=== PATIENT | male | born 1995 | race Caucasian/White ===

== ENCOUNTER 2021-01-12 00:58 | Emergency (ER) | payer OTHER ==
[~2021-01-12] VITALS: Ht 180.3 cm; Wt 91.0 kg
[~2021-01-12 00:58] MED LIST: ALBUTEROL; HYDR-523
[2021-01-12 01:09] VITALS: BP 135/92
== END 2021-01-12 05:18 | disposition left against medical advice (07) ==
LOC: ER 00:58
DX: R07.89 Other chest pain (principal); Z53.21 Procedure and treatment not carried out due to patient leaving prior to being seen by health care provider
CPT/HCPCS: 99281

== ENCOUNTER 2021-07-22 15:18 | Emergency (ER) | payer OTHER ==
[~2021-07-22] VITALS: Ht 180.3 cm; Wt 96.0 kg
[2021-07-22 15:24] VITALS: BP 164/115
== END 2021-07-22 21:52 | disposition left against medical advice (07) ==
LOC: ER 15:18
DX: Z53.21 Procedure and treatment not carried out due to patient leaving prior to being seen by health care provider (principal); I49.9 Cardiac arrhythmia, unspecified
CPT/HCPCS: 93005

== ENCOUNTER 2022-02-28 10:51 | Emergency (ER) | payer MEDICAID, OTHER ==
[~2022-02-28] VITALS: Ht 177.8 cm; Wt 95.0 kg
[2022-02-28] MEDS ORDERED: KETOROLAC 30MG/ML VIAL IV STA (11:12)
[2022-02-28] MEDS ORDERED: ONDANSETRON HCL 4MG/2ML INJ IV STA (11:12)
[2022-02-28] MEDS ORDERED: SODIUM CHLORIDE 0.9% 1,000 ML IV ONE (11:15)
[2022-02-28 11:30] LABS: BASOPHILS % 0.6 % (0.0-2.0); EOSINOPHILS % 0.4 % (0.0-5.0); HEMATOCRIT. 47.5 % (42.0-52.0); HEMOGLOBIN. 15.8 g/dL (14.0-18.0); LYMPHOCYTES % 12.1 % (20.0-50.0); MEAN CORPUSCULAR HEMOGLOBIN 35.3 pg (28.0-32.0); MEAN CORPUSCULAR VOLUME 105.6 fL (80.0-94.0); MEAN PLATELET VOLUME 7.4 fl (7.4-10.4); MONOCYTES % 5.1 % (2.0-8.0); NEUTROPHILS % 81.8 % (40.0-76.0); PLATELET 209 x1000/uL (130-400); RED BLOOD CELL COUNT 4.49 mill/uL (4.7-6.1); RED CELL DISTRIBUTION WIDTH 15.9 % (11.6-14.6)
[2022-02-28 11:37] LABS: CHLORIDE 105 mEq/L (98-107)
[2022-02-28 11:44] LABS: ETHANOL BLOOD 105 mg/dL
[2022-02-28] MEDS ORDERED: CHLORDIAZEPOXIDE 25MG CAPSULE PO ONE (13:00)
[2022-02-28 13:15] VITALS: BP 137/96
[2022-02-28] MEDS ORDERED: ONDANSETRON 4MG ODT PO ONE (13:45)
== END 2022-02-28 13:58 | disposition home or self-care (01) ==
LOC: ER 10:51
DX: R10.9 Unspecified abdominal pain (principal); T51.91XA Toxic effect of unspecified alcohol, accidental (unintentional), initial encounter; Y92.9 Unspecified place or not applicable; K76.9 Liver disease, unspecified; F10.129 Alcohol abuse with intoxication, unspecified; Y90.5 Blood alcohol level of 100-119 mg/100 ml
CPT/HCPCS: 36415; 74176; 80053; 80320; 83690; 85025; 93005; 96374; 96375; 99285; J1885; J2405; J7030; Q0162; G0480

== ENCOUNTER 2023-11-30 17:06 | Inpatient (IN) | payer MEDICAID, OTHER ==
[~2023-11-30] VITALS: Ht 177.8 cm; Wt 87.2 kg
[2023-11-30] MEDS: MORPHINE SULFATE 4 MG/ML INJ (FOR IV/IM USE) IV STA (17:46)
[2023-11-30] MEDS: ONDANSETRON HCL 4MG/2ML INJ IV STA (17:47)
[2023-11-30 18:26] LABS: BASOPHILS % 0.5 % (0.0-2.0); EOSINOPHILS % 3.9 % (0.0-5.0); HEMATOCRIT. 31.3 % (42.0-52.0); HEMOGLOBIN. 10.3 g/dL (14.0-18.0); LYMPHOCYTES % 11.8 % (20.0-50.0); MEAN CORPUSCULAR HEMOGLOBIN 33.1 pg (28.0-32.0); MEAN CORPUSCULAR HGB CONC 32.8 g/dL (31.0-37.0); MEAN CORPUSCULAR VOLUME 100.8 fL (80.0-94.0); MEAN PLATELET VOLUME 7.8 fl (7.4-10.4); MONOCYTES % 2.7 % (2.0-8.0); NEUTROPHILS % 81.1 % (40.0-76.0); PLATELET 98 x1000/uL (130-400); RED CELL DISTRIBUTION WIDTH 26.8 % (11.6-14.6); WHITE BLOOD COUNT 12.8 x1000/uL (4.5-11.0)
[2023-11-30 18:28] LABS: ADD RBC MORPHOLOGY YES; DIFFERENTIAL COMMENT 1
[2023-11-30 18:34] LABS: CHLORIDE 104 mEq/L (98-107); INR 1.4; POTASSIUM 3.7 mEq/L (3.5-5.1); PROTHROMBIN TIME 15.3 sec (9.6-11.0); SODIUM 141 mEq/L (136-145)
[2023-11-30 18:35] LABS: CALCIUM 7.9 mg/dL (8.7-10.4); CARBON DIOXIDE 28 mEq/L (21-32)
[2023-11-30 18:40] LABS: CREATININE 0.5 mg/dL (0.6-1.3); GLUCOSE 99 mg/dL (70-105)
[2023-11-30 18:42] LABS: ALANINE AMINOTRANSFERASE 56 IU/L (10-49); AMMONIA 17 uMol/L (<32); ASPARTATE AMINOTRANSFERASE 225 IU/L (<34); TROPONIN I HIGH SENSITIVITY < 4 ng/L (3.0-53); UREA NITROGEN BLOOD < 5 mg/dL (9-23)
[2023-11-30 18:43] LABS: BILIRUBIN TOTAL 14.2 mg/dL (0.1-1.0); PROTEIN TOTAL 6.4 g/dL (6.0-8.3)
[2023-11-30 18:44] LABS: ANISOCYTOSIS 2+; PLATELET ESTIMATE DECREASED
[2023-11-30 18:50] LABS: ETHANOL BLOOD 316 mg/dL (<10)
[2023-11-30] MEDS ORDERED: MORPHINE SULFATE 4 MG/ML INJ (FOR IV/IM USE) IV ONE (19:00)
[2023-11-30 21:09] LABS: TROPONIN I HIGH SENSITIVITY < 4 ng/L (3.0-53)
[2023-11-30] MEDS ORDERED: CLONIDINE 0.1MG TABLET PO PRN (21:15)
[2023-11-30] MEDS ORDERED: DOCUSATE SODIUM 100MG CAPSULE PO PRN (21:15)
[2023-11-30] MEDS ORDERED: IPRATROPIUM/ALBUTEROL 0.5-3(2.5)MG/3ML NEB HHN PRN (21:15)
[2023-11-30] MEDS ORDERED: NALOXONE HCL 0.4MG/ML VIAL IV PRN (22:00)
[2023-11-30 22:01] LABS: IRON 102 ug/dL (65-175)
[2023-11-30 22:03] LABS: AMMONIA < 17 uMol/L (<32)
[2023-11-30 22:04] LABS: PHOSPHORUS 3.7 mg/dL (2.5-4.9); PREALBUMIN < 5.0 mg/dl (10.0-40.0); TOTAL IRON BINDING CAPACITY 199 ug/dl (250-425); TROPONIN I HIGH SENSITIVITY < 4 ng/L (3.0-53)
[2023-11-30 22:05] LABS: INR 1.4; PARTIAL THROMBOPLASTIN TIME 36.7 sec (23.4-31.0); PROTHROMBIN TIME 15.4 sec (9.6-11.0)
[2023-11-30 22:09] LABS: FERRITIN 180 ng/mL (22-322); FOLIC ACID (FOLATE) SERUM 7.21 ng/mL (>5.38)
[2023-11-30 22:11] LABS: VITAMIN B12 SERUM 992 pg/mL (211-911)
[2023-11-30] MEDS ORDERED: LACTULOSE 20G/30ML UDC PO PRN (22:15)
[2023-11-30 22:21] LABS: HEPATITIS B SURFACE ANTIGEN NEGATIVE (Negative)
[2023-11-30 22:36] LABS: CLARITY URINE CLEAR (CLEAR); COLOR URINE DARK YELLOW (YELLOW); GLUCOSE URINE NEGATIVE (NEGATIVE); KETONES URINE NEGATIVE (NEGATIVE); LEUKOCYTE ESTERASE URINE TRACE (NEGATIVE); NITRITE URINE NEGATIVE (NEGATIVE); OCCULT BLOOD URINE NEGATIVE (NEGATIVE); PH URINE 7.5 (4.5-8.0); PROTEIN URINE TRACE (NEGATIVE); SPECIFIC GRAVITY URINE 1.015 (1.005-1.030)
[2023-11-30] MEDS: MORPHINE SULFATE 4 MG/ML INJ (FOR IV/IM USE) IV NR (22:38)
[2023-11-30 22:42] LABS: HEPATITIS A AB IGM NEGATIVE (Negative)
[2023-11-30 22:43] LABS: HEPATITIS B CORE AB IGM NEGATIVE (Negative); HEPATITIS C AB NON REACTIVE (Neg) (Negative)
[2023-11-30 22:46] LABS: *AMPHETAMINES SCREEN URINE NEGATIVE (NEGATIVE); *BARBITURATES SCREEN URINE PRESUMPTIVE POSITIVE (NEGATIVE); *BENZODIAZEPINES SCREEN URINE NEGATIVE (NEGATIVE); *COCAINE SCREEN URINE NEGATIVE (NEGATIVE); CANNABINOID URINE SCREEN NEGATIVE (NEGATIVE); ECSTASY MDMA SCREEN URINE NEGATIVE (NEGATIVE); METHADONE URINE SCREEN NEGATIVE (NEGATIVE); OPIATES URINE SCREEN PRESUMPTIVE POSITIVE (NEGATIVE); PHENCYCLIDINE URINE SCREEN NEGATIVE (NEGATIVE)
[2023-11-30 22:54] LABS: BACTERIA URINE 1+; RBC URINE NONE SEEN /hpf (0-2); SQUAMOUS EPITHELIAL CELL URINE FEW /lpf (RARE/1+); WBC URINE 0-2 /hpf (0-2)
[2023-11-30 23:27] VITALS: BP 118/84; PULSE 85; RESP 21; TEMP 98.6
[2023-11-30] MEDS: MVI, ADULT NO.1 10 ML, FOLIC ACID 1 MG, THIAMINE HCL 100 MG in SODIUM CHLORIDE 0.9% 1,0... IV ONE (23:42)
[2023-12-01] VITALS: BP 115/81; PULSE 88; RESP 20; TEMP 98.3
[2023-12-01 04:00] VITALS: BP 116/79; PULSE 90; RESP 16; TEMP 97.6
[2023-12-01] MEDS: ONDANSETRON HCL 4MG/2ML INJ IV PRN (06:43)
[2023-12-01 07:18] LABS: HEMOGLOBIN 10.2 g/dL (14.0-18.0); MEAN CORPUSCULAR HEMOGLOBIN 34.5 pg (28.0-32.0); MEAN CORPUSCULAR HGB CONC 33.9 g/dL (31.0-37.0); MEAN CORPUSCULAR VOLUME 101.7 fL (80.0-94.0); PLATELET 76 x1000/uL (130-400); RED BLOOD CELL COUNT 2.95 mill/uL (4.7-6.1); RED CELL DISTRIBUTION WIDTH 26.3 % (11.6-14.6); WHITE BLOOD COUNT 10.6 x1000/uL (4.5-11.0)
[2023-12-01 07:23] LABS: CHLORIDE 103 mEq/L (98-107); POTASSIUM 3.4 mEq/L (3.5-5.1); SODIUM 139 mEq/L (136-145)
[2023-12-01 07:24] LABS: CALCIUM 7.6 mg/dL (8.7-10.4); CARBON DIOXIDE 26 mEq/L (21-32)
[2023-12-01 07:29] LABS: ALANINE AMINOTRANSFERASE 49 IU/L (10-49); CREATININE 0.4 mg/dL (0.6-1.3); GLUCOSE 74 mg/dL (70-105)
[2023-12-01 07:30] LABS: ALBUMIN 2.7 g/dL (3.2-4.8); ASPARTATE AMINOTRANSFERASE 192 IU/L (<34)
[2023-12-01 07:31] LABS: BILIRUBIN TOTAL 12.8 mg/dL (0.1-1.0); PROTEIN TOTAL 5.8 g/dL (6.0-8.3)
[2023-12-01 07:35] LABS: TROPONIN I HIGH SENSITIVITY < 4 ng/L (3.0-53)
[2023-12-01 07:36] LABS: UREA NITROGEN BLOOD < 5 mg/dL (9-23)
[2023-12-01 08:00] VITALS: BP 128/97; PULSE 105; RESP 17; TEMP 98.3
[2023-12-01] MEDS ORDERED: LORAZEPAM 2MG/ML INJ IV PRN (08:30)
[2023-12-01] MEDS: LORAZEPAM 2MG/ML INJ IV NR (08:55)
[2023-12-01] MEDS: SODIUM CHLORIDE 0.45% 1,000 ML IV SCH (09:35)
[2023-12-01 12:00] VITALS: PULSE 91; RESP 20; TEMP 98
[2023-12-01] MEDS: POTASSIUM CHLORIDE 20MEQ/PACKET PO SCH (12:38)
[2023-12-01] MEDS: CHLORDIAZEPOXIDE 25MG CAPSULE PO NR (12:39)
[2023-12-01] MEDS: PROPRANOLOL HCL 10MG TABLET PO SCH (12:39)
[2023-12-01] MEDS: METOCLOPRAMIDE HCL 10MG/2ML VIAL IV SCH (12:41)
[2023-12-01] MEDS ORDERED: CHLORDIAZEPOXIDE 25MG CAPSULE PO SCH (14:00)
[2023-12-01 16:00] VITALS: BP 118/85; PULSE 93; RESP 21; TEMP 98.2
[2023-12-01] MEDS ORDERED: MAGNESIUM 2 G PREMIX 50 ML IV NR (16:00)
[2023-12-01] MEDS: CARVEDILOL 3.125 MG TABLET PO SCH (17:36)
[2023-12-01] MEDS: PANTOPRAZOLE SODIUM 40 MG/VIAL IV SCH (17:36)
[2023-12-01] MEDS: MULTIVITAMINS,THER W-MINERALS TABLET PO SCH (17:37)
[2023-12-01] MEDS: THIAMINE HCL 100 MG in SODIUM CHLORIDE 0.9% 49 ML IV SCH (17:37)
[2023-12-01] MEDS: CHLORDIAZEPOXIDE 25MG CAPSULE PO SCH (17:37)
[2023-12-01] MEDS: RIFAXIMIN 550 MG TABLET PO SCH (17:47)
[2023-12-01 20:00] VITALS: BP 115/74; PULSE 94; RESP 26; TEMP 98.3
[2023-12-01] MEDS: MAGNESIUM 2 G PREMIX 50 ML IV NR (21:00)
[2023-12-01] MEDS ORDERED: FAMOTIDINE 20MG/2ML VIAL IV SCH (21:00)
[2023-12-01] MEDS: MORPHINE SULFATE 2 MG/ML INJ (NOT FOR IM USE) IV PRN (21:11)
[2023-12-02] VITALS (7 sets, daily range): BP systolic 102–109; BP diastolic 66–85; PULSE 86–101; RESP 18–31; TEMP 97.3–98.7
[2023-12-02] MEDS: ONDANSETRON INJ 8 MG in DEXTROSE 5% WATER 46 ML IV PRN (04:06)
[2023-12-02 07:09] LABS: BASOPHILS % 0.9 % (0.0-2.0); EOSINOPHILS % 4.4 % (0.0-5.0); HEMATOCRIT. 29.1 % (42.0-52.0); HEMOGLOBIN. 9.4 g/dL (14.0-18.0); LYMPHOCYTES % 8.9 % (20.0-50.0); MEAN CORPUSCULAR HEMOGLOBIN 33.4 pg (28.0-32.0); MEAN CORPUSCULAR HGB CONC 32.4 g/dL (31.0-37.0); MEAN CORPUSCULAR VOLUME 103.1 fL (80.0-94.0); MEAN PLATELET VOLUME 7.9 fl (7.4-10.4); MONOCYTES % 3.2 % (2.0-8.0); NEUTROPHILS % 82.6 % (40.0-76.0); PLATELET 56 x1000/uL (130-400); RED BLOOD CELL COUNT 2.82 mill/uL (4.7-6.1); RED CELL DISTRIBUTION WIDTH 24.9 % (11.6-14.6); WHITE BLOOD COUNT 11.2 x1000/uL (4.5-11.0)
[2023-12-02 07:19] LABS: CARBON DIOXIDE 24 mEq/L (21-32); CHLORIDE 102 mEq/L (98-107); POTASSIUM 3.4 mEq/L (3.5-5.1); SODIUM 135 mEq/L (136-145)
[2023-12-02 07:20] LABS: CALCIUM 7.6 mg/dL (8.7-10.4)
[2023-12-02 07:21] LABS: INR 1.4; PROTHROMBIN TIME 15.5 sec (9.6-11.0)
[2023-12-02 07:22] LABS: ADD RBC MORPHOLOGY NO; DIFFERENTIAL COMMENT 1
[2023-12-02 07:24] LABS: CREATININE 0.4 mg/dL (0.6-1.3); GLUCOSE 86 mg/dL (70-105)
[2023-12-02 07:25] LABS: LDL CHOLESTEROL 51 mg/dL (5-100); TRIGLYCERIDE 191 mg/dL (0-150)
[2023-12-02 07:26] LABS: ALANINE AMINOTRANSFERASE 38 IU/L (10-49); ALBUMIN 2.6 g/dL (3.2-4.8); ASPARTATE AMINOTRANSFERASE 135 IU/L (<34)
[2023-12-02 07:27] LABS: BILIRUBIN DIRECT 11.2 mg/dL (<=3.0); BILIRUBIN TOTAL 15.1 mg/dL (0.1-1.0); CHOLESTEROL 114 mg/dL (<200); HDL CHOLESTEROL < 20 mg/dL (>55); PROTEIN TOTAL 5.8 g/dL (6.0-8.3); UREA NITROGEN BLOOD < 5 mg/dL (9-23)
[2023-12-02] MEDS: POTASSIUM CHLORIDE 20MEQ TABLET SR PO NR (09:26)
[2023-12-02] MEDS: SODIUM BICARBONATE 4% 2.4MEQ/5ML VIAL IV ONE (12:07)
[2023-12-02] MEDS: LIDOCAINE HCL 1% 10 MG/ML 10ML VIAL ONE (12:07)
[2023-12-02] MEDS: MEROPENEM 1G/100ML 100 ML IV SCH (14:39)
[2023-12-02 16:15] LABS: PROTEIN BODY FLUID < 2.0 gm/dL
[2023-12-02 16:25] LABS: BODY FLUID MONOCYTES 18 %
[2023-12-02 16:26] LABS: BODY FLUID RBC 146 /cu mm (0-2000); BODY FLUID WBC 102 /cu mm (0-200)
[2023-12-02] MEDS: LORAZEPAM 2MG/ML INJ IV PRN (16:26)
[2023-12-02] MEDS: ALBUMIN HUMAN 12.5GM/50ML (25%) IV SCH (19:31)
[2023-12-02] MEDS: CHLORDIAZEPOXIDE 25MG CAPSULE PO SCH (22:11)
[2023-12-02] MEDS: METRONIDAZOLE 500MG TABLET PO SCH (22:11)
[2023-12-02] MEDS: CEFEPIME 2GM/100ML 100 ML IV SCH (22:13)
[2023-12-03] VITALS: BP 104/71; PULSE 103; RESP 28; TEMP 98.7
[2023-12-03 04:00] VITALS: BP 110/66; PULSE 103; RESP 24; TEMP 98.6
[2023-12-03 07:13] LABS: CHLORIDE 103 mEq/L (98-107); POTASSIUM 3.2 mEq/L (3.5-5.1); SODIUM 134 mEq/L (136-145)
[2023-12-03 07:16] LABS: CALCIUM 7.8 mg/dL (8.7-10.4); CARBON DIOXIDE 23 mEq/L (21-32)
[2023-12-03 07:18] LABS: BASOPHILS % 0.9 % (0.0-2.0); EOSINOPHILS % 4.2 % (0.0-5.0); HEMATOCRIT. 26.6 % (42.0-52.0); HEMOGLOBIN. 8.8 g/dL (14.0-18.0); LYMPHOCYTES % 11.4 % (20.0-50.0); MEAN CORPUSCULAR HEMOGLOBIN 34.4 pg (28.0-32.0); MEAN CORPUSCULAR HGB CONC 33.1 g/dL (31.0-37.0); MONOCYTES % 3.1 % (2.0-8.0); NEUTROPHILS % 80.4 % (40.0-76.0); PLATELET 52 x1000/uL (130-400); RED BLOOD CELL COUNT 2.56 mill/uL (4.7-6.1); RED CELL DISTRIBUTION WIDTH 24.3 % (11.6-14.6); WHITE BLOOD COUNT 8.1 x1000/uL (4.5-11.0)
[2023-12-03 07:19] LABS: ADD RBC MORPHOLOGY NO; DIFFERENTIAL COMMENT 1
[2023-12-03 07:21] LABS: CREATININE 0.5 mg/dL (0.6-1.3); GLUCOSE 100 mg/dL (70-105)
[2023-12-03 07:22] LABS: ALANINE AMINOTRANSFERASE 29 IU/L (10-49); AMMONIA 60 uMol/L (<32)
[2023-12-03 07:23] LABS: ALBUMIN 2.9 g/dL (3.2-4.8); ASPARTATE AMINOTRANSFERASE 86 IU/L (<34)
[2023-12-03 07:24] LABS: BILIRUBIN DIRECT 11.1 mg/dL (<=3.0)
[2023-12-03 07:25] LABS: PROTEIN TOTAL 5.7 g/dL (6.0-8.3)
[2023-12-03 07:48] LABS: UREA NITROGEN BLOOD < 5 mg/dL (9-23)
[2023-12-03 08:00] VITALS: BP 110/73; PULSE 109; RESP 28; TEMP 99
[2023-12-03] MEDS: POTASSIUM CHLORIDE 20MEQ TABLET SR PO NR (09:39)
[2023-12-03] MEDS: CHLORDIAZEPOXIDE 25MG CAPSULE PO NR (11:20)
[2023-12-03] MEDS: LACTULOSE 20G/30ML UDC PO SCH (11:20)
[2023-12-03] MEDS: SPIRONOLACTONE 12.5MG TABLET PO SCH (11:25)
[2023-12-03 12:00] VITALS: BP 106/66; PULSE 100; RESP 25; TEMP 99.1
[2023-12-03] MEDS: CHLORDIAZEPOXIDE 25MG CAPSULE PO SCH (14:52)
[2023-12-03 16:00] VITALS: BP 113/57; PULSE 105; RESP 27; TEMP 99
[2023-12-03] MEDS ORDERED: LORAZEPAM 2MG/ML INJ IV PRN (16:15)
[2023-12-03] MEDS ORDERED: FLUMAZENIL 0.1 MG/ML 5ML VIAL IV PRN (16:30)
[2023-12-03 20:00] VITALS: BP 108/67; PULSE 98; RESP 20; TEMP 98.2
[2023-12-04] VITALS: BP 104/67; PULSE 94; RESP 24; TEMP 97.8
[2023-12-04] MEDS: MAGNESIUM 4 G PREMIX 100 ML IV NR (00:12)
[2023-12-04 04:00] VITALS: BP 100/66; PULSE 99; RESP 23; TEMP 97.6
[2023-12-04 06:16] LABS: CHLORIDE 105 mEq/L (98-107); POTASSIUM 3.5 mEq/L (3.5-5.1); SODIUM 134 mEq/L (136-145)
[2023-12-04 06:17] LABS: CARBON DIOXIDE 23 mEq/L (21-32)
[2023-12-04 06:18] LABS: CALCIUM 7.9 mg/dL (8.7-10.4)
[2023-12-04 06:22] LABS: CREATININE 0.5 mg/dL (0.6-1.3); GLUCOSE 90 mg/dL (70-105)
[2023-12-04 06:23] LABS: ALANINE AMINOTRANSFERASE 24 IU/L (10-49); BASOPHILS % 0.7 % (0.0-2.0); EOSINOPHILS % 4.2 % (0.0-5.0); HEMATOCRIT. 26.2 % (42.0-52.0); HEMOGLOBIN. 8.8 g/dL (14.0-18.0); LYMPHOCYTES % 13.8 % (20.0-50.0); MEAN CORPUSCULAR HEMOGLOBIN 34.9 pg (28.0-32.0); MEAN CORPUSCULAR HGB CONC 33.4 g/dL (31.0-37.0); MEAN CORPUSCULAR VOLUME 104.5 fL (80.0-94.0); MEAN PLATELET VOLUME 8.4 fl (7.4-10.4); MONOCYTES % 5.9 % (2.0-8.0); NEUTROPHILS % 75.4 % (40.0-76.0); PLATELET 52 x1000/uL (130-400); RED BLOOD CELL COUNT 2.51 mill/uL (4.7-6.1); RED CELL DISTRIBUTION WIDTH 24.6 % (11.6-14.6); WHITE BLOOD COUNT 6.9 x1000/uL (4.5-11.0)
[2023-12-04 06:24] LABS: ALBUMIN 2.8 g/dL (3.2-4.8); ASPARTATE AMINOTRANSFERASE 68 IU/L (<34)
[2023-12-04 06:25] LABS: AMMONIA 42 uMol/L (<32); BILIRUBIN DIRECT 12.7 mg/dL (<=3.0); BILIRUBIN TOTAL 15.7 mg/dL (0.1-1.0); PROTEIN TOTAL 5.4 g/dL (6.0-8.3)
[2023-12-04 06:28] LABS: DIFFERENTIAL COMMENT 1
[2023-12-04 06:29] LABS: ADD RBC MORPHOLOGY NO
[2023-12-04 06:31] LABS: UREA NITROGEN BLOOD < 5 mg/dL (9-23)
[2023-12-04 08:06] VITALS: BP 116/71; PULSE 100; RESP 26
[2023-12-04 09:29] VITALS: BP 116/72; PULSE 92; TEMP 97.6; O2SAT 97
== END 2023-12-04 11:51 | disposition home or self-care (01) | DRG 280 ==
LOC: ER 17:06 → 3WST 21:01 → EDBEDREQ 21:03 → EDBEDREQTM 21:03 → 3WST 12-01 01:13
PROVIDERS: ADMIT Internal Medicine; ATTEND Internal Medicine
PROC: 0W9G3ZZ Drainage of Peritoneal Cavity, Percutaneous Approach (ICD-10-PCS; principal; 2023-12-02)
PROC: 5A0935A Assistance with Respiratory Ventilation, Less than 24 Consecutive Hours, High Flow/Velocity Cannula (ICD-10-PCS; 2023-12-02)
DX: K70.31 Alcoholic cirrhosis of liver with ascites (principal); D68.9 Coagulation defect, unspecified; D69.6 Thrombocytopenia, unspecified; E44.0 Moderate protein-calorie malnutrition; K76.6 Portal hypertension; F10.229 Alcohol dependence with intoxication, unspecified; J98.11 Atelectasis; K59.00 Constipation, unspecified; D50.9 Iron deficiency anemia, unspecified; K92.1 Melena; R16.1 Splenomegaly, not elsewhere classified; Z68.27 Body mass index [BMI] 27.0-27.9, adult
CPT/HCPCS: 36415; 49083; 71045; 74176; 76705; 80053; 80061; 80076; 80305; 80320; 81003; 82040; 82140; 82248; 82270; 82378; 82607; 82728; 82746; 83540; 83550; 83615; 83735; 83880; 84100; 84134; 84484; 85025; 85027; 86705; 86709; 86850; 86900; 87340; 88108; 93005; 93970; 99285; J0692; J2060; J2185; J2270; J2405; J2470; J2765; J3411; J3475; J3490; J7030; J7060; P9047; G0480

== ENCOUNTER 2023-12-08 05:30 | Emergency (ER) | payer OTHER ==
[~2023-12-08] VITALS: Ht 167.6 cm; Wt 75.0 kg
[2023-12-08 05:33] VITALS: O2SAT 96
[2023-12-08] MEDS ORDERED: ONDANSETRON HCL 4MG/2ML INJ IV STA (05:47)
[2023-12-08] MEDS: ONDANSETRON HCL 4MG/2ML INJ IV NR (06:15)
[2023-12-08 06:16] VITALS: TEMP 97.2
[2023-12-08 06:20] LABS: BASOPHILS % 1.7 % (0.0-2.0); EOSINOPHILS % 4.6 % (0.0-5.0); HEMATOCRIT. 27.4 % (42.0-52.0); HEMOGLOBIN. 8.9 g/dL (14.0-18.0); LYMPHOCYTES % 30.1 % (20.0-50.0); MEAN CORPUSCULAR HEMOGLOBIN 34.3 pg (28.0-32.0); MEAN CORPUSCULAR HGB CONC 32.7 g/dL (31.0-37.0); MEAN PLATELET VOLUME 7.7 fl (7.4-10.4); MONOCYTES % 9.9 % (2.0-8.0); NEUTROPHILS % 53.7 % (40.0-76.0); PLATELET 110 x1000/uL (130-400); RED BLOOD CELL COUNT 2.61 mill/uL (4.7-6.1); RED CELL DISTRIBUTION WIDTH 22.8 % (11.6-14.6); WHITE BLOOD COUNT 5.8 x1000/uL (4.5-11.0)
[2023-12-08 06:23] LABS: CHLORIDE 109 mEq/L (98-107); POTASSIUM 3.5 mEq/L (3.5-5.1); SODIUM 139 mEq/L (136-145)
[2023-12-08 06:24] LABS: CARBON DIOXIDE 24 mEq/L (21-32)
[2023-12-08 06:25] LABS: CALCIUM 7.7 mg/dL (8.7-10.4)
[2023-12-08 06:28] LABS: DIFFERENTIAL COMMENT 1
[2023-12-08 06:29] LABS: CREATININE 0.5 mg/dL (0.6-1.3); GLUCOSE 110 mg/dL (70-105)
[2023-12-08 06:33] LABS: TROPONIN I HIGH SENSITIVITY < 4 ng/L (3.0-53); UREA NITROGEN BLOOD < 5 mg/dL (9-23)
[2023-12-08] MEDS ORDERED: CLONIDINE 0.1MG TABLET PO PRN (08:00)
[2023-12-08] MEDS ORDERED: IPRATROPIUM/ALBUTEROL 0.5-3(2.5)MG/3ML NEB HHN PRN (08:00)
[2023-12-08] MEDS ORDERED: ONDANSETRON HCL 4MG/2ML INJ IV PRN (08:00)
[2023-12-08] MEDS ORDERED: MAGNESIUM/ALUMINUM HYDROXIDE/SIMETHICONE 30ML UDC PO PRN (08:00)
[2023-12-08] MEDS ORDERED: CHLORDIAZEPOXIDE 25MG CAPSULE PO PRN (08:00)
[2023-12-08] MEDS ORDERED: ACETAMINOPHEN 325MG TABLET PO PRN ×2 (08:00)
[2023-12-08] MEDS ORDERED: LACT10SO3 PO (08:27)
[2023-12-08] MEDS: FUROSEMIDE 40MG/4ML VIAL IVP NR (08:58)
[2023-12-08] MEDS: LORAZEPAM 2MG/ML INJ IV PRN (08:58)
[2023-12-08] MEDS: FOLIC ACID 1MG TABLET PO SCH (09:00)
[2023-12-08] MEDS: MULTIVITAMINS,THER W-MINERALS TABLET PO SCH (09:00)
[2023-12-08 09:04] LABS: BASOPHILS % 0.8 % (0.0-2.0); EOSINOPHILS % 4.5 % (0.0-5.0); LYMPHOCYTES % 22.5 % (20.0-50.0); MEAN CORPUSCULAR HEMOGLOBIN 33.8 pg (28.0-32.0); MEAN CORPUSCULAR VOLUME 105.7 fL (80.0-94.0); MEAN PLATELET VOLUME 7.9 fl (7.4-10.4); MONOCYTES % 10.4 % (2.0-8.0); NEUTROPHILS % 61.8 % (40.0-76.0); PLATELET 107 x1000/uL (130-400); RED BLOOD CELL COUNT 2.65 mill/uL (4.7-6.1); RED CELL DISTRIBUTION WIDTH 23.3 % (11.6-14.6)
[2023-12-08 09:13] LABS: AMMONIA < 17 uMol/L (<32); LDL CHOLESTEROL 46 mg/dL (5-100); TRIGLYCERIDE 184 mg/dL (0-150)
[2023-12-08 09:14] LABS: ALANINE AMINOTRANSFERASE 19 IU/L (10-49); ALBUMIN 2.9 g/dL (3.2-4.8); ASPARTATE AMINOTRANSFERASE 82 IU/L (<34); CHOLESTEROL 107 mg/dL (<200); HDL CHOLESTEROL < 20 mg/dL (>55)
[2023-12-08 09:15] LABS: BILIRUBIN TOTAL 11.5 mg/dL (0.1-1.0); INR 1.4; PARTIAL THROMBOPLASTIN TIME 34.7 sec (23.4-31.0); PROTEIN TOTAL 6.1 g/dL (6.0-8.3); PROTHROMBIN TIME 15.2 sec (9.6-11.0)
[2023-12-08 09:16] LABS: ADD RBC MORPHOLOGY YES; DIFFERENTIAL COMMENT 1
[2023-12-08 09:17] LABS: T4 FREE 1.17 ng/dL (0.89-1.76); THYROID STIMULATING HORMONE 3.87 uIU/mL (0.55-4.78)
[2023-12-08 10:07] LABS: ANISOCYTOSIS 2+; PLATELET ESTIMATE SLIGHTLY DECREASED; TARGET CELLS FEW
[2023-12-08] MEDS: PANTOPRAZOLE SODIUM 40 MG/VIAL IV SCH (10:08)
[2023-12-08] MEDS: KETOROLAC 15MG/ML VIAL IV PRN (10:08)
[2023-12-08] MEDS: SPIRONOLACTONE 12.5MG TABLET PO SCH (10:08)
[2023-12-08] MEDS: FOLIC ACID 1 MG, THIAMINE HCL 100 MG, MVI, ADULT NO.1 10 ML in DEXTROSE 5% WATER 1,000 ML IV ONE (10:09)
[2023-12-08 10:17] VITALS: BP 115/72; PULSE 93; RESP 16
[2023-12-08 10:43] LABS: BG CARBOXYHEMOGLOBIN 0.3 % (0.5-1.5); BG FRACTION INSPIRED OXYGEN 28; BG HCO3 ACT 23.4 mmol/L (22.0-26.0); BG METHEMOGLOBIN 0.3 % (0.0-1.5); BG OXYHEMOGLOBIN 96.4 % (94.0-97.0); BG PCO2 33.8 mmHg (35.0-45.0); BG PH 7.459 (7.350-7.450); BG PO2 94.9 mmHg (75.0-100.0); BG SAMPLE SITE RIGHT RADIAL; BG TOTAL HEMOGLOBIN 10.7 g/dL (12.0-18.0); BG VENT MODE NASAL CANNULA
[2023-12-10] MEDS ORDERED: THIAMINE HCL 100MG TABLET PO SCH (09:00)
== END 2023-12-08 10:56 | disposition left against medical advice (07) ==
LOC: ER 05:30 → CANBEDREQ 10:51 → ER 10:56
DX: J45.901 Unspecified asthma with (acute) exacerbation (principal); R07.9 Chest pain, unspecified; K70.30 Alcoholic cirrhosis of liver without ascites; F10.20 Alcohol dependence, uncomplicated; Y90.9 Presence of alcohol in blood, level not specified
CPT/HCPCS: 80061; 80076; 80048; 82140; 83880; 84439; 83690; 83735; 84100; 84443; 85025; 85610; 85730; 84484; 36415; 71045; 76705; 82805; 82375; 93005; 96374; 96375; 99285; 36600; J1940; J1885; J2060; J2405; Z7610 ×5; J3411; J3490; J7070

== ENCOUNTER 2024-07-30 03:40 | Inpatient (IN) | payer MEDICAID ==
[~2024-07-30] VITALS: Ht 180.3 cm; Wt 83.0 kg
[~2024-07-30 03:40] MED LIST changes: +CHLO25CA10 PO; +ERGO1250 PO; +ESCI-7 PO; +FOLI-43 PO; +FURO20TA4 PO; +GABA-1180 PO; +LACT-390 PO; +MULT-1318 PO; +PANT40TA51 PO; +RIFA550T PO; +SPIR25TA6 PO; +THIA100T88 PO; +[UNRECOGNIZED DRUG - CODE]
[2024-07-30 03:42] VITALS: O2SAT 98
[2024-07-30] MEDS ORDERED: OCTREOTIDE 1,000 MCG in SODIUM CHLORIDE 0.9% 100 ML IV STA (03:53)
[2024-07-30] MEDS ORDERED: SODIUM CHLORIDE 0.9% IV SCH (04:15)
[2024-07-30] MEDS ORDERED: OCTREOTIDE IV SCH (04:15)
[2024-07-30] MEDS: OCTREOTIDE ACETATE 50 MCG/ML 1ML IV STA (04:45)
[2024-07-30] MEDS: PANTOPRAZOLE SODIUM 40 MG/VIAL IV STA (04:45)
[2024-07-30] MEDS: CEFTRIAXONE 2GM/50ML 50 ML IV ONE (04:45)
[2024-07-30 04:46] LABS: EOSINOPHILS % 2.5 % (0.0-5.0); HEMATOCRIT. 36.3 % (42.0-52.0); HEMOGLOBIN. 12.2 g/dL (14.0-18.0); LYMPHOCYTES % 18.5 % (20.0-50.0); MEAN CORPUSCULAR HEMOGLOBIN 31.2 pg (28.0-32.0); MEAN CORPUSCULAR HGB CONC 33.7 g/dL (31.0-37.0); MEAN CORPUSCULAR VOLUME 92.5 fL (80.0-94.0); MONOCYTES % 5.1 % (2.0-8.0); NEUTROPHILS % 72.9 % (40.0-76.0); RED BLOOD CELL COUNT 3.92 mill/uL (4.7-6.1); RED CELL DISTRIBUTION WIDTH 18.5 % (11.6-14.6)
[2024-07-30] MEDS: SODIUM CHLORIDE 0.9% 1,000 ML IV ONE (04:46)
[2024-07-30] MEDS: OCTREOTIDE 1,000 MCG in SODIUM CHLORIDE 0.9% 98 ML IV SCH (04:52)
[2024-07-30 04:58] LABS: CARBON DIOXIDE 27 mEq/L (21-32); CHLORIDE 99 mEq/L (98-107); DIFFERENTIAL COMMENT 1; POTASSIUM 3.5 mEq/L (3.5-5.1); SODIUM 141 mEq/L (136-145)
[2024-07-30 04:59] LABS: CALCIUM 9.5 mg/dL (8.7-10.4)
[2024-07-30 05:03] LABS: CREATININE 0.6 mg/dL (0.6-1.3)
[2024-07-30 05:04] LABS: GLUCOSE 99 mg/dL (70-105)
[2024-07-30 05:05] LABS: ALANINE AMINOTRANSFERASE 35 IU/L (10-49); ALBUMIN 4.5 g/dL (3.2-4.8); ASPARTATE AMINOTRANSFERASE 190 IU/L (<34); LACTIC ACID 2.9 mmol/L (0.4-2.0)
[2024-07-30 05:06] LABS: BILIRUBIN TOTAL 3.3 mg/dL (0.1-1.0); PHOSPHORUS 3.8 mg/dL (2.5-4.9)
[2024-07-30 05:13] LABS: PROTEIN TOTAL 9.1 g/dL (6.0-8.3); TROPONIN I HIGH SENSITIVITY < 4 ng/L (3.0-53); UREA NITROGEN BLOOD < 5 mg/dL (9-23)
[2024-07-30 05:14] LABS: ETHANOL BLOOD 394 mg/dL (<10)
[2024-07-30] MEDS: ONDANSETRON HCL 4MG/2ML INJ IV ONE (06:00)
[2024-07-30 06:34] LABS: INR 1.2; PARTIAL THROMBOPLASTIN TIME 32.1 sec (23.4-31.0); PROTHROMBIN TIME 12.7 sec (9.6-11.0)
[2024-07-30 06:49] LABS: PLATELET 34 x1000/uL (130-400)
[2024-07-30 16:00] VITALS: BP 119/75; PULSE 88; RESP 18; TEMP 36.6; O2SAT 98
[2024-07-30 16:32] VITALS: BP 119/75; PULSE 88; RESP 18; TEMP 36.6
[2024-07-30] MEDS ORDERED: CLONIDINE 0.1MG TABLET PO PRN (18:15)
[2024-07-30] MEDS ORDERED: ONDANSETRON HCL 4MG/2ML INJ IV PRN (18:15)
[2024-07-30] MEDS ORDERED: ACETAMINOPHEN 325MG TABLET PO PRN (18:15)
[2024-07-30] MEDS ORDERED: MAGNESIUM/ALUMINUM HYDROXIDE/SIMETHICONE 30ML UDC PO PRN (18:15)
[2024-07-30] MEDS: SODIUM CHLORIDE 0.9% 1,000 ML IV SCH (18:30)
[2024-07-30 20:00] VITALS: BP 113/68; PULSE 84; RESP 18; TEMP 36.9; O2SAT 99
[2024-07-30 20:17] LABS: HEMATOCRIT. 32.7 % (42.0-52.0); HEMOGLOBIN. 10.7 g/dL (14.0-18.0); MEAN CORPUSCULAR HEMOGLOBIN 30.4 pg (28.0-32.0); MEAN CORPUSCULAR HGB CONC 32.7 g/dL (31.0-37.0); MEAN CORPUSCULAR VOLUME 93.1 fL (80.0-94.0); MEAN PLATELET VOLUME 8.4 fl (7.4-10.4); RED BLOOD CELL COUNT 3.51 mill/uL (4.7-6.1); RED CELL DISTRIBUTION WIDTH 18.6 % (11.6-14.6)
[2024-07-30 20:23] LABS: DIFFERENTIAL COMMENT 1; PLATELET 20 x1000/uL (130-400)
[2024-07-30] MEDS: PANTOPRAZOLE SODIUM 40 MG/VIAL IV SCH (20:47)
[2024-07-30] MEDS: CEFTRIAXONE 1GM/50ML 50 ML IV SCH (20:47)
[2024-07-30 20:54] LABS: ANISOCYTOSIS 1+; PLATELET ESTIMATE MARKEDLY DECREASED
[2024-07-30] MEDS: LORAZEPAM 2MG/ML INJ IV PRN ×2 (20:58→21:42)
[2024-07-30] MEDS: MAGNESIUM 2 G PREMIX 50 ML IV NR (21:42)
[2024-07-30 22:38] LABS: CREATINE KINASE 41 IU/L (46-171)
[2024-07-30] MEDS: CHLORDIAZEPOXIDE 25MG CAPSULE PO SCH (22:58)
[2024-07-30] MEDS: FOLIC ACID 1 MG, THIAMINE HCL 100 MG, MVI, ADULT NO.1 10 ML in DEXTROSE 5% WATER 1,000 ML IV NR (22:59)
[2024-07-30 23:50] VITALS: BP 106/55; PULSE 94; RESP 18; TEMP 36.8; O2SAT 98
[2024-07-31] VITALS (10 sets, daily range): BP systolic 108–131; BP diastolic 64–74; PULSE 81–116; RESP 16–20; TEMP 36.7–37.6; O2SAT 96–99
[2024-07-31 05:57] LABS: AMMONIA 85 uMol/L (<32)
[2024-07-31 06:12] LABS: CARBON DIOXIDE 28 mEq/L (21-32); CHLORIDE 96 mEq/L (98-107); POTASSIUM 3.7 mEq/L (3.5-5.1); SODIUM 133 mEq/L (136-145)
[2024-07-31 06:13] LABS: CALCIUM 8.9 mg/dL (8.7-10.4)
[2024-07-31 06:17] LABS: ALBUMIN 3.8 g/dL (3.2-4.8); CREATININE 0.7 mg/dL (0.6-1.3); GLUCOSE 153 mg/dL (70-105); IRON 186 ug/dL (65-175)
[2024-07-31 06:18] LABS: ALANINE AMINOTRANSFERASE 30 IU/L (10-49); BILIRUBIN TOTAL 4.2 mg/dL (0.1-1.0); LDL CHOLESTEROL 84 mg/dL (5-100); T4 FREE 1.06 ng/dL (0.89-1.76); TRIGLYCERIDE 87 mg/dL (0-150)
[2024-07-31 06:19] LABS: ASPARTATE AMINOTRANSFERASE 163 IU/L (<34); CREATINE KINASE 24 IU/L (46-171)
[2024-07-31 06:20] LABS: BILIRUBIN DIRECT 2.5 mg/dL (<=3.0); CHOLESTEROL 148 mg/dL (<200); HDL CHOLESTEROL 37 mg/dL (>55); PROTEIN TOTAL 7.7 g/dL (6.0-8.3)
[2024-07-31 06:27] LABS: UREA NITROGEN BLOOD < 5 mg/dL (9-23)
[2024-07-31 06:47] LABS: FERRITIN 33 ng/mL (22-322); FOLIC ACID (FOLATE) SERUM > 20.00 ng/mL (>5.38)
[2024-07-31 06:48] LABS: VITAMIN B12 SERUM 1298 pg/mL (211-911)
[2024-07-31 06:56] LABS: BASOPHILS % 0.7 % (0.0-2.0); EOSINOPHILS % 2.1 % (0.0-5.0); HEMATOCRIT. 30.3 % (42.0-52.0); LYMPHOCYTES % 10.4 % (20.0-50.0); MEAN CORPUSCULAR HGB CONC 33.1 g/dL (31.0-37.0); MEAN CORPUSCULAR VOLUME 93.8 fL (80.0-94.0); MEAN PLATELET VOLUME 8.8 fl (7.4-10.4); MONOCYTES % 6.1 % (2.0-8.0); NEUTROPHILS % 80.7 % (40.0-76.0); RED BLOOD CELL COUNT 3.23 mill/uL (4.7-6.1); RED CELL DISTRIBUTION WIDTH 18.6 % (11.6-14.6); WHITE BLOOD COUNT 4.4 x1000/uL (4.5-11.0)
[2024-07-31 07:08] LABS: CLARITY URINE CLEAR (CLEAR); COLOR URINE ORANGE (YELLOW); GLUCOSE URINE NEGATIVE (NEGATIVE); KETONES URINE TRACE (NEGATIVE); LEUKOCYTE ESTERASE URINE 1+ (NEGATIVE); NITRITE URINE POSITIVE (NEGATIVE); OCCULT BLOOD URINE NEGATIVE (NEGATIVE); PH URINE 6.5 (4.5-8.0); PROTEIN URINE 1+ (NEGATIVE); SPECIFIC GRAVITY URINE 1.028 (1.005-1.030)
[2024-07-31 07:09] LABS: DIFFERENTIAL COMMENT 1; PLATELET 21 x1000/uL (130-400)
[2024-07-31 07:10] LABS: ADD RBC MORPHOLOGY YES
[2024-07-31 07:43] LABS: BACTERIA URINE FEW; RBC URINE NONE SEEN /hpf (0-2); SQUAMOUS EPITHELIAL CELL URINE RARE /lpf (RARE/1+); WBC URINE 0-2 /hpf (0-2); YEAST URINE NONE SEEN
[2024-07-31 08:00] LABS: *AMPHETAMINES SCREEN URINE NEGATIVE (NEGATIVE)
[2024-07-31 08:01] LABS: *BARBITURATES SCREEN URINE NEGATIVE (NEGATIVE); *BENZODIAZEPINES SCREEN URINE PRESUMPTIVE POSITIVE (NEGATIVE); *COCAINE SCREEN URINE NEGATIVE (NEGATIVE); CANNABINOID URINE SCREEN PRESUMPTIVE POSITIVE (NEGATIVE); ECSTASY MDMA SCREEN URINE NEGATIVE (NEGATIVE); METHADONE URINE SCREEN NEGATIVE (NEGATIVE); OPIATES URINE SCREEN NEGATIVE (NEGATIVE); PHENCYCLIDINE URINE SCREEN NEGATIVE (NEGATIVE)
[2024-07-31] MEDS: FOLIC ACID 1MG TABLET PO SCH (09:00)
[2024-07-31] MEDS: THIAMINE HCL 100MG TABLET PO SCH (09:00)
[2024-07-31] MEDS: DOCUSATE SODIUM 100MG CAPSULE PO PRN (09:02)
[2024-07-31 12:13] LABS: ANISOCYTOSIS 1+; PLATELET ESTIMATE MARKEDLY DECREASED
[2024-07-31] MEDS: GUAIFENESIN 200MG/10ML SUGAR FREE UDC PO PRN (12:13)
[2024-07-31] MEDS: LACTULOSE 20G/30ML UDC PO SCH (13:01)
[2024-07-31] MEDS: SUCRALFATE 1G TABLET PO SCH (13:02)
[2024-07-31 17:06] LABS: ALANINE AMINOTRANSFERASE 25 IU/L (10-49); ALBUMIN 3.6 g/dL (3.2-4.8); ASPARTATE AMINOTRANSFERASE 129 IU/L (<34); BILIRUBIN DIRECT 2.6 mg/dL (<=3.0); BILIRUBIN TOTAL 4.3 mg/dL (0.1-1.0); PROTEIN TOTAL 7.4 g/dL (6.0-8.3)
[2024-07-31 17:37] LABS: TROPONIN I HIGH SENSITIVITY < 4 ng/L (3.0-53)
[2024-07-31] MEDS ORDERED: PANTOPRAZOLE SODIUM 40 MG/VIAL IV SCH (21:00)
[2024-07-31] MEDS: CARVEDILOL 3.125 MG TABLET PO SCH (21:07)
[2024-08-01 03:55] VITALS: BP 120/63; PULSE 80; RESP 18; TEMP 37.1; O2SAT 99
[2024-08-01 07:46] LABS: BASOPHILS % 0.7 % (0.0-2.0); EOSINOPHILS % 3.9 % (0.0-5.0); HEMATOCRIT. 33.7 % (42.0-52.0); HEMOGLOBIN. 11.1 g/dL (14.0-18.0); LYMPHOCYTES % 14.5 % (20.0-50.0); MEAN CORPUSCULAR HGB CONC 32.8 g/dL (31.0-37.0); MEAN CORPUSCULAR VOLUME 94.4 fL (80.0-94.0); MEAN PLATELET VOLUME 8.8 fl (7.4-10.4); MONOCYTES % 5.3 % (2.0-8.0); NEUTROPHILS % 75.6 % (40.0-76.0); RED BLOOD CELL COUNT 3.57 mill/uL (4.7-6.1); RED CELL DISTRIBUTION WIDTH 17.9 % (11.6-14.6); WHITE BLOOD COUNT 4.3 x1000/uL (4.5-11.0)
[2024-08-01 07:53] LABS: CHLORIDE 100 mEq/L (98-107); POTASSIUM 3.5 mEq/L (3.5-5.1); SODIUM 133 mEq/L (136-145)
[2024-08-01 07:54] LABS: CALCIUM 9.4 mg/dL (8.7-10.4); CARBON DIOXIDE 25 mEq/L (21-32)
[2024-08-01 07:59] LABS: CREATININE 0.6 mg/dL (0.6-1.3); GLUCOSE 87 mg/dL (70-105)
[2024-08-01 08:00] VITALS: BP 121/74; PULSE 88; RESP 18; TEMP 37.3; O2SAT 99
[2024-08-01 08:00] LABS: ALANINE AMINOTRANSFERASE 24 IU/L (10-49); AMMONIA 70 uMol/L (<32)
[2024-08-01 08:01] LABS: ASPARTATE AMINOTRANSFERASE 123 IU/L (<34); BILIRUBIN TOTAL 4.9 mg/dL (0.1-1.0); PROTEIN TOTAL 8.1 g/dL (6.0-8.3)
[2024-08-01 08:16] LABS: HEPATITIS B SURFACE ANTIGEN NEGATIVE (Negative)
[2024-08-01 08:37] LABS: HEPATITIS A AB IGM NEGATIVE (Negative)
[2024-08-01 08:38] LABS: HEPATITIS B CORE AB IGM NEGATIVE (Negative); HEPATITIS C AB REACTIVE (Pos) (Negative)
[2024-08-01 09:00] LABS: UREA NITROGEN BLOOD < 5 mg/dL (9-23)
[2024-08-01] MEDS: PANTOPRAZOLE SODIUM 40 MG/VIAL IV SCH (09:03)
[2024-08-01 09:08] LABS: DIFFERENTIAL COMMENT 1
[2024-08-01 14:52] LABS: PLATELET 26 x1000/uL (130-400)
[2024-08-01 20:00] VITALS: BP 107/68; PULSE 72; RESP 20; TEMP 36.9; O2SAT 100
[2024-08-02] VITALS (10 sets, daily range): BP systolic 97–122; BP diastolic 52–76; PULSE 71–85; RESP 18–20; TEMP 36.5–37.1; O2SAT 96–100
[2024-08-02 07:25] LABS: CALCIUM 9.6 mg/dL (8.7-10.4); CARBON DIOXIDE 24 mEq/L (21-32); CHLORIDE 101 mEq/L (98-107); POTASSIUM 3.7 mEq/L (3.5-5.1); SODIUM 134 mEq/L (136-145)
[2024-08-02 07:29] LABS: AMMONIA 70 uMol/L (<32)
[2024-08-02 07:30] LABS: CREATININE 0.6 mg/dL (0.6-1.3)
[2024-08-02 07:31] LABS: GLUCOSE 82 mg/dL (70-105); UREA NITROGEN BLOOD 5 mg/dL (9-23)
[2024-08-02 07:32] LABS: ALANINE AMINOTRANSFERASE 22 IU/L (10-49); ALBUMIN 4.1 g/dL (3.2-4.8); ASPARTATE AMINOTRANSFERASE 103 IU/L (<34)
[2024-08-02 07:33] LABS: BILIRUBIN DIRECT 2.8 mg/dL (<=3.0); BILIRUBIN TOTAL 4.3 mg/dL (0.1-1.0); PROTEIN TOTAL 8.4 g/dL (6.0-8.3)
[2024-08-02 09:33] LABS: BASOPHILS % 0.8 % (0.0-2.0); EOSINOPHILS % 3.8 % (0.0-5.0); HEMOGLOBIN. 11.2 g/dL (14.0-18.0); LYMPHOCYTES % 16.9 % (20.0-50.0); MEAN CORPUSCULAR HGB CONC 33.1 g/dL (31.0-37.0); MEAN CORPUSCULAR VOLUME 96.7 fL (80.0-94.0); MEAN PLATELET VOLUME 9.7 fl (7.4-10.4); MONOCYTES % 6.2 % (2.0-8.0); NEUTROPHILS % 72.3 % (40.0-76.0); RED BLOOD CELL COUNT 3.51 mill/uL (4.7-6.1); RED CELL DISTRIBUTION WIDTH 18.3 % (11.6-14.6); WHITE BLOOD COUNT 4.9 x1000/uL (4.5-11.0)
[2024-08-02 11:07] LABS: DIFFERENTIAL COMMENT 1
[2024-08-02 11:09] LABS: PLATELET 30 x1000/uL (130-400)
[2024-08-03] VITALS: BP 106/62; PULSE 74; RESP 20; TEMP 36.9; O2SAT 100
[2024-08-03 04:00] VITALS: BP 125/74; PULSE 85; RESP 20; TEMP 36.8; O2SAT 100
[2024-08-03 06:37] LABS: CARBON DIOXIDE 23 mEq/L (21-32); CHLORIDE 102 mEq/L (98-107); POTASSIUM 3.5 mEq/L (3.5-5.1); SODIUM 137 mEq/L (136-145)
[2024-08-03 06:38] LABS: CALCIUM 9.3 mg/dL (8.7-10.4)
[2024-08-03 06:43] LABS: CREATININE 0.6 mg/dL (0.6-1.3); GLUCOSE 89 mg/dL (70-105)
[2024-08-03 06:46] LABS: UREA NITROGEN BLOOD < 5 mg/dL (9-23)
[2024-08-03 07:24] LABS: BASOPHILS % 1.1 % (0.0-2.0); EOSINOPHILS % 3.6 % (0.0-5.0); HEMATOCRIT. 32.4 % (42.0-52.0); HEMOGLOBIN. 10.8 g/dL (14.0-18.0); LYMPHOCYTES % 15.2 % (20.0-50.0); MEAN CORPUSCULAR HEMOGLOBIN 32.7 pg (28.0-32.0); MEAN CORPUSCULAR HGB CONC 33.3 g/dL (31.0-37.0); MEAN CORPUSCULAR VOLUME 98.4 fL (80.0-94.0); MEAN PLATELET VOLUME 9.8 fl (7.4-10.4); MONOCYTES % 7.2 % (2.0-8.0); NEUTROPHILS % 72.9 % (40.0-76.0); RED CELL DISTRIBUTION WIDTH 17.8 % (11.6-14.6); WHITE BLOOD COUNT 4.2 x1000/uL (4.5-11.0)
[2024-08-03 07:37] LABS: DIFFERENTIAL COMMENT 1
[2024-08-03 07:41] LABS: PLATELET 38 x1000/uL (130-400)
[2024-08-03 08:00] VITALS: BP 114/63; PULSE 78; RESP 18; TEMP 36.3; O2SAT 99
[2024-08-03 11:42] VITALS: BP 113/69; PULSE 87; RESP 20; TEMP 36.4; O2SAT 99
[2024-08-03 12:58] LABS: ALANINE AMINOTRANSFERASE 23 IU/L (10-49); ALBUMIN 3.9 g/dL (3.2-4.8); ASPARTATE AMINOTRANSFERASE 92 IU/L (<34); BILIRUBIN DIRECT 2.8 mg/dL (<=3.0); BILIRUBIN TOTAL 4.2 mg/dL (0.1-1.0); PROTEIN TOTAL 7.9 g/dL (6.0-8.3)
[2024-08-03 15:59] VITALS: BP 111/60; PULSE 91; RESP 17; TEMP 36.7; O2SAT 97
[2024-08-03 20:00] VITALS: BP 104/64; PULSE 82; RESP 19; TEMP 36.3; O2SAT 100
[2024-08-04] VITALS: BP 110/52; PULSE 80; RESP 20; TEMP 36.4; O2SAT 100
[2024-08-04 04:00] VITALS: BP 106/65; PULSE 78; RESP 20; TEMP 36.3; O2SAT 100
[2024-08-04 06:20] LABS: CHLORIDE 106 mEq/L (98-107); POTASSIUM 3.6 mEq/L (3.5-5.1); SODIUM 138 mEq/L (136-145)
[2024-08-04 06:21] LABS: CARBON DIOXIDE 23 mEq/L (21-32)
[2024-08-04 06:22] LABS: CALCIUM 9.1 mg/dL (8.7-10.4)
[2024-08-04 06:24] LABS: AMMONIA 54 uMol/L (<32)
[2024-08-04 06:26] LABS: CREATININE 0.6 mg/dL (0.6-1.3); GLUCOSE 81 mg/dL (70-105)
[2024-08-04 06:28] LABS: ALANINE AMINOTRANSFERASE 17 IU/L (10-49); ALBUMIN 3.6 g/dL (3.2-4.8); ASPARTATE AMINOTRANSFERASE 70 IU/L (<34)
[2024-08-04 06:29] LABS: BILIRUBIN TOTAL 3.4 mg/dL (0.1-1.0); PROTEIN TOTAL 7.5 g/dL (6.0-8.3)
[2024-08-04 06:31] LABS: INR 1.3
[2024-08-04 06:47] LABS: UREA NITROGEN BLOOD < 5 mg/dL (9-23)
[2024-08-04 06:49] LABS: BASOPHILS % 0.7 % (0.0-2.0); EOSINOPHILS % 3.2 % (0.0-5.0); HEMATOCRIT. 31.2 % (42.0-52.0); HEMOGLOBIN. 10.1 g/dL (14.0-18.0); LYMPHOCYTES % 16.8 % (20.0-50.0); MEAN CORPUSCULAR HEMOGLOBIN 31.2 pg (28.0-32.0); MEAN CORPUSCULAR HGB CONC 32.4 g/dL (31.0-37.0); MEAN CORPUSCULAR VOLUME 96.1 fL (80.0-94.0); MEAN PLATELET VOLUME 10.1 fl (7.4-10.4); NEUTROPHILS % 71.3 % (40.0-76.0); RED BLOOD CELL COUNT 3.24 mill/uL (4.7-6.1); WHITE BLOOD COUNT 3.9 x1000/uL (4.5-11.0)
[2024-08-04 06:55] LABS: DIFFERENTIAL COMMENT 1
[2024-08-04 08:00] VITALS: BP 108/68; PULSE 81; RESP 18; TEMP 36.3; O2SAT 100
[2024-08-04 12:00] VITALS: BP 115/75; PULSE 80; RESP 18; TEMP 36.6; O2SAT 97
[2024-08-04 14:03] LABS: PLATELET 43 x1000/uL (130-400)
[2024-08-04] MEDS ORDERED: PROPOFOL 200MG/20ML VIAL IV ONE (14:35)
[2024-08-04 16:00] VITALS: BP 113/69; PULSE 108; RESP 18; TEMP 36.4; O2SAT 100
[2024-08-04 20:00] VITALS: BP 113/69; PULSE 89; RESP 20; TEMP 36.2; O2SAT 98
[2024-08-05] VITALS: BP 115/62; PULSE 72; RESP 20; TEMP 36.1; O2SAT 99
[2024-08-05 04:00] VITALS: BP 93/47; PULSE 78; RESP 20; TEMP 36.2; O2SAT 98
[2024-08-05 08:00] VITALS: BP 109/72; PULSE 81; RESP 18; TEMP 36.4; O2SAT 99
[2024-08-05 09:00] VITALS: PULSE 81
[2024-08-05] MEDS ORDERED: LACT-390 PO (13:32)
[2024-08-05] MEDS ORDERED: PANT40TA51 PO (13:32)
[2024-08-05] MEDS ORDERED: FOLI-43 PO (13:32)
[2024-08-05] MEDS ORDERED: THIA100T88 PO (13:32)
[2024-08-05] MEDS ORDERED: COR3 PO (13:32)
[2024-08-05] MEDS ORDERED: SUCR1TAB PO (13:32)
== END 2024-08-05 14:51 | disposition left against medical advice (07) | DRG 241 ==
LOC: ER 03:45 → 7WST 16:23
PROVIDERS: ADMIT Internal Medicine; ATTEND Internal Medicine
PROC: 30233R1 Transfusion of Nonautologous Platelets into Peripheral Vein, Percutaneous Approach (ICD-10-PCS; principal; 2024-07-31)
PROC: 0DB78ZX Excision of Stomach, Pylorus, Via Natural or Artificial Opening Endoscopic, Diagnostic (ICD-10-PCS; 2024-08-04)
DX: K29.51 Unspecified chronic gastritis with bleeding (principal); D61.818 Other pancytopenia; E87.20 Acidosis, unspecified; E72.20 Disorder of urea cycle metabolism, unspecified; K76.6 Portal hypertension; E87.1 Hypo-osmolality and hyponatremia; K70.30 Alcoholic cirrhosis of liver without ascites; F41.9 Anxiety disorder, unspecified; B19.20 Unspecified viral hepatitis C without hepatic coma; E83.42 Hypomagnesemia; K31.89 Other diseases of stomach and duodenum; F10.129 Alcohol abuse with intoxication, unspecified; N39.0 Urinary tract infection, site not specified; R16.1 Splenomegaly, not elsewhere classified; E05.90 Thyrotoxicosis, unspecified without thyrotoxic crisis or storm; Y90.8 Blood alcohol level of 240 mg/100 ml or more; Z53.29 Procedure and treatment not carried out because of patient's decision for other reasons
CPT/HCPCS: 36415; 71045; 76700; 80048; 80053; 80061; 80076; 80305; 80320; 81003; 82105; 82140; 82270; 82550; 82607; 82728; 82746; 83540; 83605; 83735; 84100; 84439; 84443; 84484; 85025; 85044; 85049; 86705; 86709; 86850; 86900; 87340; 88305; 88312; 88313; 93970; 99291; A4606; A6449; J0696; J2060; J2354; J2405; J2470; J2704; J3411; J3475; J3490; J7030; J7050; J7070; P9034; G0480

== ENCOUNTER 2024-09-25 13:19 | Emergency (ER) | payer MEDICAID ==
[~2024-09-25] VITALS: Ht 175.3 cm; Wt 82.0 kg
[~2024-09-25 13:19] MED LIST changes: +COR3 PO; +SUCR1TAB PO
[2024-09-25 13:25] VITALS: BP 115/54; PULSE 83; RESP 16; TEMP 36.8; O2SAT 99
== END 2024-09-25 19:45 | disposition left against medical advice (07) ==
LOC: ER 13:19
DX: R53.1 Weakness (principal); Z53.21 Procedure and treatment not carried out due to patient leaving prior to being seen by health care provider
CPT/HCPCS: Z7610 ×4

== ENCOUNTER 2024-12-01 19:50 | Emergency (ER) | payer MEDICAID ==
[~2024-12-01] VITALS: Ht 177.8 cm; Wt 84.0 kg
[2024-12-01 19:55] VITALS: O2SAT 98
[2024-12-01] MEDS: IBUPROFEN 600MG TABLET PO ONE (20:45)
[2024-12-01] MEDS ORDERED: CYCL10TA21 MT (21:47)
[2024-12-01] MEDS ORDERED: BO1 TP (21:47)
[2024-12-01] MEDS ORDERED: TRAM50TA3 MT (21:47)
[2024-12-01 22:26] VITALS: BP 112/59; PULSE 85; RESP 14; TEMP 36.7; O2SAT 99
== END 2024-12-01 22:29 | disposition home or self-care (01) ==
LOC: ER 19:50
DX: S82.891A Other fracture of right lower leg, initial encounter for closed fracture (principal); S70.02XA Contusion of left hip, initial encounter; K76.9 Liver disease, unspecified; Z88.8 Allergy status to other drugs, medicaments and biological substances; Z79.899 Other long term (current) drug therapy; W05.1XXA Fall from non-moving nonmotorized scooter, initial encounter; Y93.55 Activity, bike riding; Y92.89 Other specified places as the place of occurrence of the external cause; Y99.8 Other external cause status
CPT/HCPCS: 29515; 72192; 73610; 99284

== ENCOUNTER 2025-02-17 18:25 | Inpatient (IN) | payer MEDICAID ==
[~2025-02-17] VITALS: Ht 177.8 cm; Wt 82.7 kg
[2025-02-17] VITALS (9 sets, daily range): BP systolic 101–124; BP diastolic 80–88; PULSE 85–104; RESP 12–16; TEMP 35.61396–37.0296; O2SAT 98–99
[~2025-02-17 18:25] MED LIST changes: +BO1 TP; +CYCL10TA21 MT; +TRAM50TA3 MT
[2025-02-17 19:21] LABS: HEMATOCRIT. 31.7 % (42.0-52.0); HEMOGLOBIN. 10.1 g/dL (14.0-18.0); MEAN PLATELET VOLUME 8.3 fl (7.4-10.4); RED BLOOD CELL COUNT 3.67 mill/uL (4.7-6.1); RED CELL DISTRIBUTION WIDTH 28.0 % (11.6-14.6)
[2025-02-17] MEDS: CEFTRIAXONE 1GM/50ML 50 ML IV NR (19:25)
[2025-02-17] MEDS: PANTOPRAZOLE SODIUM 40 MG/VIAL IV ONE (19:26)
[2025-02-17] MEDS: FAMOTIDINE 20MG/2ML VIAL IV ONE (19:26)
[2025-02-17] MEDS: ONDANSETRON HCL 4MG/2ML INJ IV ONE (19:26)
[2025-02-17 19:28] LABS: CREATININE 0.5 mg/dL (0.6-1.3)
[2025-02-17 19:29] LABS: INR 1.2; UREA NITROGEN BLOOD < 5 mg/dL (9-23)
[2025-02-17] MEDS: SODIUM CHLORIDE 0.9% 1,000 ML IV ONE (19:29)
[2025-02-17 19:30] LABS: ASPARTATE AMINOTRANSFERASE 169 IU/L (<34); BILIRUBIN DIRECT 7.0 mg/dL (<=3.0)
[2025-02-17 19:31] LABS: BILIRUBIN TOTAL 8.9 mg/dL (0.1-1.0); PROTEIN TOTAL 8.3 g/dL (6.0-8.3)
[2025-02-17] MEDS: OCTREOTIDE 1,000 MCG in SODIUM CHLORIDE 0.9% 98 ML IV ONE (19:47)
[2025-02-17 19:50] LABS: EOSINOPHILS % MANUAL 3.0 % (0.0-5.0); LYMPHOCYTES % MANUAL 28.0 % (20.0-50.0); MONOCYTES % MANUAL 3.0 % (2.0-8.0); NEUTROPHILS % MANUAL 66.0 % (45.0-75.0); PLATELET ESTIMATE MARKEDLY DECREASED
[2025-02-17 19:52] LABS: PLATELET 22 x1000/uL (130-400)
[2025-02-17] MEDS ORDERED: MAGNESIUM/ALUMINUM HYDROXIDE/SIMETHICONE 30ML UDC PO PRN (22:00)
[2025-02-17] MEDS ORDERED: GUAIFENESIN 200MG/10ML SUGAR FREE UDC PO PRN (22:00)
[2025-02-17] MEDS ORDERED: ACETAMINOPHEN 325MG TABLET PO PRN ×2 (22:00)
[2025-02-17] MEDS ORDERED: DOCUSATE SODIUM 100MG CAPSULE PO PRN (22:00)
[2025-02-17] MEDS ORDERED: IPRATROPIUM/ALBUTEROL 0.5-3(2.5)MG/3ML NEB HHN PRN (22:00)
[2025-02-17] MEDS ORDERED: CLONIDINE 0.1MG TABLET PO PRN (22:00)
[2025-02-17] MEDS ORDERED: LORAZEPAM 2MG/ML UD SYRINGE IV PRN (22:15)
[2025-02-18] VITALS (18 sets, daily range): BP systolic 107–127; BP diastolic 71–98; PULSE 86–102; RESP 11–26; TEMP 36.1–37.4; O2SAT 92–99
[2025-02-18] MEDS: MVI, ADULT NO.1 10 ML, FOLIC ACID 1 MG, THIAMINE HCL 100 MG in DEXT 5%/0.9% NACL 1,000 ML IV SCH (01:02)
[2025-02-18 02:17] LABS: BASOPHILS % 0.8 % (0.0-2.0); EOSINOPHILS % 2.2 % (0.0-5.0); HEMATOCRIT. 31.9 % (42.0-52.0); HEMOGLOBIN. 10.3 g/dL (14.0-18.0); LYMPHOCYTES % 12.5 % (20.0-50.0); MEAN PLATELET VOLUME 8.0 fl (7.4-10.4); MONOCYTES % 4.2 % (2.0-8.0); NEUTROPHILS % 80.3 % (40.0-76.0); RED BLOOD CELL COUNT 3.75 mill/uL (4.7-6.1); RED CELL DISTRIBUTION WIDTH 25.6 % (11.6-14.6)
[2025-02-18 02:28] LABS: PLATELET 23 x1000/uL (130-400)
[2025-02-18 02:37] LABS: CREATININE 0.5 mg/dL (0.6-1.3); TRIGLYCERIDE 203 mg/dL (0-150); UREA NITROGEN BLOOD < 5 mg/dL (9-23)
[2025-02-18 02:38] LABS: LDL CHOLESTEROL 114 mg/dL (5-100)
[2025-02-18 02:39] LABS: T4 FREE 1.09 ng/dL (0.89-1.76)
[2025-02-18] MEDS: LORAZEPAM 2MG/ML UD SYRINGE IV PRN (03:28)
[2025-02-18 04:56] LABS: HEPATITIS C AB REACTIVE (Pos) (Negative)
[2025-02-18 05:47] LABS: *AMPHETAMINES SCREEN URINE NEGATIVE (NEGATIVE); *BARBITURATES SCREEN URINE PRESUMPTIVE POSITIVE (NEGATIVE); *BENZODIAZEPINES SCREEN URINE NEGATIVE (NEGATIVE); *COCAINE SCREEN URINE NEGATIVE (NEGATIVE); CANNABINOID URINE SCREEN NEGATIVE (NEGATIVE); ECSTASY MDMA SCREEN URINE NEGATIVE (NEGATIVE); METHADONE URINE SCREEN NEGATIVE (NEGATIVE); OPIATES URINE SCREEN NEGATIVE (NEGATIVE); PHENCYCLIDINE URINE SCREEN NEGATIVE (NEGATIVE)
[2025-02-18 07:36] LABS: CREATININE 0.5 mg/dL (0.6-1.3); UREA NITROGEN BLOOD < 5 mg/dL (9-23)
[2025-02-18 07:38] LABS: ASPARTATE AMINOTRANSFERASE 145 IU/L (<34); BILIRUBIN DIRECT 5.9 mg/dL (<=3.0); BILIRUBIN TOTAL 8.4 mg/dL (0.1-1.0); PROTEIN TOTAL 7.5 g/dL (6.0-8.3)
[2025-02-18] MEDS: OCTREOTIDE 1,000 MCG in SODIUM CHLORIDE 0.9% 98 ML IV SCH (07:55)
[2025-02-18] MEDS: ONDANSETRON HCL 4MG/2ML INJ IV PRN (08:22)
[2025-02-18] MEDS: FAMOTIDINE 20MG/2ML VIAL IV SCH (08:22)
[2025-02-18] MEDS: THIAMINE HCL 100MG TABLET PO SCH (10:59)
[2025-02-18] MEDS: FOLIC ACID 1MG TABLET PO SCH (10:59)
[2025-02-18] MEDS: CHLORDIAZEPOXIDE 25MG CAPSULE PO SCH (15:27)
[2025-02-18] MEDS: LACTATED RINGERS 1,000 ML IV SCH (15:27)
[2025-02-18] MEDS: PROCHLORPERAZINE MALEATE 10MG TABLET PO SCH (18:08)
[2025-02-18 19:10] LABS: RED BLOOD CELL COUNT 3.76 mill/uL (4.7-6.1); RED CELL DISTRIBUTION WIDTH 25.5 % (11.6-14.6)
[2025-02-18 19:18] LABS: PLATELET 20 x1000/uL (130-400)
[2025-02-18] MEDS: CEFTRIAXONE 1GM/50ML 50 ML IV SCH (20:52)
[2025-02-19] VITALS (11 sets, daily range): BP systolic 49–124; BP diastolic 80–101; PULSE 74–107; RESP 15–23; TEMP 36.55848–37.3; O2SAT 95–98
[2025-02-19 02:58] LABS: RED BLOOD CELL COUNT 3.51 mill/uL (4.7-6.1); RED CELL DISTRIBUTION WIDTH 24.8 % (11.6-14.6)
[2025-02-19 05:05] LABS: PLATELET 25 x1000/uL (130-400)
[2025-02-19 07:48] LABS: RED BLOOD CELL COUNT 3.48 mill/uL (4.7-6.1); RED CELL DISTRIBUTION WIDTH 25.2 % (11.6-14.6)
[2025-02-19 08:09] LABS: CREATININE 0.6 mg/dL (0.6-1.3)
[2025-02-19 08:10] LABS: INR 1.4; UREA NITROGEN BLOOD < 5 mg/dL (9-23)
[2025-02-19 08:11] LABS: ASPARTATE AMINOTRANSFERASE 108 IU/L (<34)
[2025-02-19 08:12] LABS: BILIRUBIN DIRECT 7.1 mg/dL (<=3.0); BILIRUBIN TOTAL 9.4 mg/dL (0.1-1.0); PROTEIN TOTAL 7.1 g/dL (6.0-8.3)
[2025-02-19 08:29] LABS: PLATELET 24 x1000/uL (130-400)
[2025-02-19 10:13] LABS: RED BLOOD CELL COUNT 3.62 mill/uL (4.7-6.1); RED CELL DISTRIBUTION WIDTH 26.0 % (11.6-14.6)
[2025-02-19 10:18] LABS: PLATELET 23 x1000/uL (130-400)
[2025-02-19] MEDS: PANTOPRAZOLE SODIUM 40 MG/VIAL IV SCH (12:02)
[2025-02-19] MEDS ORDERED: PROPOFOL 200MG/20ML VIAL IV ONE ×2 (14:13→14:27)
== END 2025-02-19 17:30 | disposition left against medical advice (07) | DRG 280 ==
LOC: ER 18:25 → 5EST 19:44 → EDBEDREQTM 20:02 → EDBEDREQ 20:02 → EDBEDREQSVC 20:02 → ENRESERV 20:42
PROVIDERS: ADMIT Internal Medicine; ATTEND Internal Medicine
PROC: 30233R1 Transfusion of Nonautologous Platelets into Peripheral Vein, Percutaneous Approach (ICD-10-PCS; principal; 2025-02-17)
PROC: 30233N1 Transfusion of Nonautologous Red Blood Cells into Peripheral Vein, Percutaneous Approach (ICD-10-PCS; 2025-02-17)
PROC: 0DB78ZX Excision of Stomach, Pylorus, Via Natural or Artificial Opening Endoscopic, Diagnostic (ICD-10-PCS; 2025-02-19)
DX: K70.30 Alcoholic cirrhosis of liver without ascites (principal); I85.01 Esophageal varices with bleeding; E87.20 Acidosis, unspecified; D64.9 Anemia, unspecified; K22.10 Ulcer of esophagus without bleeding; D69.6 Thrombocytopenia, unspecified; F10.139 Alcohol abuse with withdrawal, unspecified; E78.5 Hyperlipidemia, unspecified; B19.20 Unspecified viral hepatitis C without hepatic coma; E80.6 Other disorders of bilirubin metabolism; Y90.8 Blood alcohol level of 240 mg/100 ml or more; K31.9 Disease of stomach and duodenum, unspecified; K76.6 Portal hypertension; Z88.8 Allergy status to other drugs, medicaments and biological substances; Z79.899 Other long term (current) drug therapy; Z53.29 Procedure and treatment not carried out because of patient's decision for other reasons
CPT/HCPCS: 36415; 76700; 80048; 80061; 80076; 80305; 80320; 82550; 83036; 83605; 83735; 83880; 84439; 84443; 85025; 85027; 86705; 86850; 86900; 86920; 86945; 87340; 88305; 93005; 96365; 96375; 99291; A4606; J0696; J1308; J2060; J2354; J2405; J2470; J2704; J3411; J3490; J7030; J7042; J7050; J7120; P9016; P9034; Q0164; G0480